=== PATIENT | male | born 1955 | race Two or more races ===

== ENCOUNTER 2016-08-17 13:27 | Emergency (ER) | payer OTHER ==
[~2016-08-17] VITALS: Ht 175.3 cm; Wt 145.1 kg
[~2016-08-17 13:27] MED LIST: CANA100T PO; DIGO0.25 PO; FURO-68 PO; GLIM4TAB2 PO; LIRA0.6P SQ; LISI-338 PO; METF10002 PO; PIOG15TA2 PO; PIOG30TA3 PO; POTA10TA12 PO; POTA20PA PO; RIVA20TA2 PO; TAMS0.4C2 PO; VERA120T5 PO; WARF5TAB7 PO
[2016-08-17 13:41] VITALS: BP 142/75
[2016-08-17] MEDS ORDERED: PROAIR HFA8.5 GM INH (14:18)
[2016-08-17] MEDS ORDERED: AZIT250T6 PO (14:18)
--- NOTE | 2016-08-17 14:18 | PHYS DOC ---
Past Medical History Past Medical History: A-Fib, CAD, CHF, Diabetes-Type II, Heart Disease, Hypertension Additional Past Medical Histor: CHF Past Surgical History: Other Additional Past Surgical Histo: BACK Alcohol Use: None Drug Use: None Adult General Chief Complaint Chief Complaint: COUGH HPI HPI Patient is a 61 year old male who presents with 3 weeks of productive cough with green sputum as well as dyspnea. His symptoms are worse at night. He also has nasal congestion and rhinorrhea. He denies chest pain, fever or chills, nausea or vomiting, abdominal pain, diarrhea, headache, sick contacts, hemoptysis, leg pain or swelling and orthopnea, palpitations, diaphoresis, exertional symptoms. Review of Systems Review of Systems Constitutional: Denies fever or chills [] Eyes: Denies change in visual acuity, redness, or eye pain [] HENT: Denies sore throat [] Respiratory: Has cough and shortness of breath [] Cardiovascular: No additional information not addressed in HPI [] GI: Denies abdominal pain, nausea, vomiting, bloody stools or diarrhea [] : Denies dysuria or hematuria [] Musculoskeletal: Denies back pain or joint pain [] Integument: Denies rash or skin lesions [] Neurologic: Denies headache, focal weakness or sensory changes [] Endocrine: Denies polyuria or polydipsia [] Allergies Allergies Allergies Coded Allergies Type Severity Reaction Last Updated Verified ciprofloxacin Allergy Intermediate 04/15/15 Yes Physical Exam Physical Exam Constitutional: Well developed, well nourished, no acute distress, non-toxic appearance. [] HENT: Normocephalic, atraumatic, bilateral TMs with clear effusion, oropharynx moist, no oral exudates, nose normal. [] Eyes: PERRLA, EOMI, conjunctiva normal, no discharge. [] Neck: Normal range of motion, supple, no stridor. [] Cardiovascular:Heart rate regular rhythm [] Lungs & Thorax: Bilateral breath sounds clear to auscultation, intermittent wet cough. Has cough with forced exhalation [] Abdomen: Bowel sounds normal, soft, no tenderness. [] Skin: Warm, dry, no erythema, no rash. [] Back: Normal range of motion. [] Extremities: No tenderness, ROM intact, no edema, no palpable cord. [] Neurologic: Alert and oriented X 3, normal motor function, normal sensory function, no focal deficits noted. [] Psychologic: Affect normal, judgement normal, mood normal. [] Current Patient Data Vital Signs Vital Signs Date Time Temp Pulse Resp B/P Pulse Ox O2 Delivery O2 Flow Rate FiO2 08/17/16 13:41 98.3 77 18 96 Room Air 98.3 Radiology/Procedures Radiology/Procedures Chest xray as interpreted by me with no acute cardiopulmonary disease process Course & Med Decision Making Course & Med Decision Making Pertinent Labs and Imaging studies reviewed. (See chart for details) With persistent symptoms, will treat with antibiotics. Albuterol inhaler provided for bronchospastic component of cough. Return precautions given. He and understand and agree with plan. Dragon Disclaimer Dragon Disclaimer This electronic medical record was generated, in whole or in part, using a voice recognition dictation system. Departure Departure Impression: Primary Impression: Cough Disposition: 01 HOME, SELF-CARE Condition: STABLE Referrals: ARIELLE GARDNER MD (PCP) Patient Instructions: Acute Bronchitis, [id number] Additional Instructions: Taking azithromycin as prescribed. Use inhaler as needed for cough or shortness of breath. Follow-up with your primary care doctor within one week. Return for any concerns. Scripts Azithromycin (Azithromycin Tablet)250 Mg Tablet1 Pkg PO UD #6 TAB Prov:Yuridia CLAUDIO MD 08/17/16 Albuterol Sulfate (Proair Hfa Inhaler)8.5 Gm Hfa.aer.ad2 Puff INH Q4HRS PRN SHORTNESS OF BREATH #1 INHALER Prov:Yuridia CLAUDIO MD 08/17/16 Yuridia CLAUDIO MD Aug 17, 2016 14:18
--- NOTE | 2016-08-17 14:21 | RAD ---
Indication: Productive cough and short of air for 3 weeks Technique: Two-view chest radiograph was obtained. No comparison is available. Findings: The lungs are clear. The cardiopulmonary silhouette is within normal limits. There is no pleural effusion. There are mild degenerative changes in the spine. Impression: No acute thoracic findings.
== END 2016-08-17 14:20 | disposition home or self-care (01) ==
LOC: ER 13:27
DX: R05 Cough (principal); I11.0 Hypertensive heart disease with heart failure; I50.9 Heart failure, unspecified; E11.9 Type 2 diabetes mellitus without complications; I25.10 Atherosclerotic heart disease of native coronary artery without angina pectoris; Z88.1 Allergy status to other antibiotic agents
CPT/HCPCS: 71020; 99284

== ENCOUNTER 2017-03-18 17:16 | Emergency (ER) | payer OTHER ==
[~2017-03-18] VITALS: Ht 175.3 cm; Wt 145.1 kg
[~2017-03-18 17:16] MED LIST changes: +AZIT250T6 PO; +METF-620 PO; -METF10002 PO; +PROAIR HFA8.5 GM INH
[2017-03-18 17:40] LABS: BILIRUBIN,URINE NEGATIVE (NEG); GLUCOSE,URINE >=1000 mg/dL (NEG); NITRITE,URINE NEGATIVE (NEG); PROTEIN,URINE NEGATIVE (NEG-TRACE)
[2017-03-18 18:09] VITALS: BP 115/69
[2017-03-18 18:36] LABS: BACTERIA,URINE MANY /HPF (0-FEW); RBC,URINE 0 /HPF (0-2); SQUAMOUS EPITHELIAL CELL,UR FEW /LPF; WBC,URINE TNTC /HPF (0-4)
[2017-03-18] MEDS ORDERED: CEPH-264 PO (18:40)
--- NOTE | 2017-03-18 18:43 | PHYS DOC ---
Past Medical History Past Medical History: A-Fib, CAD, CHF, Diabetes-Type II, Heart Disease, Hypertension Additional Past Medical Histor: CHF Past Surgical History: Other Additional Past Surgical Histo: BACK Alcohol Use: None Drug Use: None Adult General Chief Complaint Chief Complaint: PAIN ON URINATION HPI HPI Patient is a 62 year old male presenting to the emergency department for evaluation of painful urination going on for the past 2-3 days. Is that he now has fevers chills myalgias and arthralgias. Patient has not measured a temperature and there has been no nausea vomiting or diarrhea. Patient says that he is having no abdominal pain. He does have a history of atrial fibrillation and is on Coumadin. Review of Systems Review of Systems Constitutional:+ fever, chills [] Respiratory: Denies cough or shortness of breath [] Cardiovascular: No additional information not addressed in HPI [] GI: Denies abdominal pain, nausea, vomiting, bloody stools or diarrhea [] : + dysuria. No hematuria [] Musculoskeletal: Denies back pain or joint pain [] Neurologic: Denies headache, focal weakness or sensory changes [] Current Medications Current Medications Current Medications Medications (Trade) Dose Ordered Sig/Winifred Start Time Stop Time Status Last Admin Dose Admin Ceftriaxone Sodium (Rocephin Im) 1 gm 1X ONCE 03/18/17 18:45 03/18/17 18:46 DC 03/18/17 18:51 1 GM Allergies Allergies Allergies Coded Allergies Type Severity Reaction Last Updated Verified ciprofloxacin Allergy Intermediate 04/15/15 Yes Physical Exam Physical Exam Constitutional: Well developed, well nourished, no acute distress, non-toxic appearance. [] Cardiovascular:Heart rate irregular rhythm, tachycardic at 110 bpm, no murmur [] Lungs & Thorax: Bilateral breath sounds clear to auscultation [] Abdomen: Bowel sounds normal, soft, no tenderness, no masses, no pulsatile masses. [] Skin: Warm, dry, no erythema, no rash. [] Back: No tenderness, no CVA tenderness. [] Extremities: No tenderness, no cyanosis, no clubbing, ROM intact, no edema. [] Neurologic: Alert and oriented X 3, normal motor function, normal sensory function, no focal deficits noted. [] Psychologic: Affect normal, judgement normal, mood normal. [] Current Patient Data Vital Signs Vital Signs Date Time Temp Pulse Resp B/P (MAP) Pulse Ox O2 Delivery O2 Flow Rate FiO2 03/18/17 18:09 106 20 115/69 (84) 98 03/18/17 17:32 98.2 Room Air 98.2 Lab Values Laboratory Tests Test 03/18/17 17:25 Urine Collection Type Unknown Urine Color Yellow Urine Clarity Clear Urine pH 6.0 Urine Specific [place] 1.025 Urine Protein Negative mg/dL (NEG-TRACE) Urine Glucose (UA) >=1000 mg/dL (NEG) Urine Ketones (Stick) Negative mg/dL (NEG) Urine Blood Negative (NEG) Urine Nitrite Negative (NEG) Urine Bilirubin Negative (NEG) Urine Urobilinogen Dipstick 1.0 mg/dL (0.2 mg/dL) Urine Leukocyte Esterase Moderate (NEG) Urine RBC 0 /HPF (0-2) Urine WBC Tntc /HPF (0-4) Urine Squamous Epithelial Cells Few /LPF Urine Bacteria Many /HPF (0-FEW) Urine Hyaline Casts Moderate /HPF Urine Mucus Slight /LPF EKG EKG [] Radiology/Procedures Radiology/Procedures [] Course & Med Decision Making Course & Med Decision Making Patient with urinary tract infection and says that overall he feels well and nontoxic. Patient can safely be treated as an outpatient my opinion so I will give him a dose of IM Rocephin here and send him home on by mouth Keflex. Told to follow with his primary care provider to ensure improvement and come back to the ER sooner with any worsening pain fevers vomiting or other general concerns. Patient aware and agreeable with plan and verbalized understanding of the need for short-term follow-up in the strict ER return precautions discussed as above. Dragon Disclaimer Dragon Disclaimer This electronic medical record was generated, in whole or in part, using a voice recognition dictation system. Departure Departure Impression: Primary Impression: Urinary tract infection Disposition: HOME, SELF-CARE Condition: GOOD Referrals: ARIELLE GARDNER MD (PCP) Patient Instructions: Urinary Tract Infection Scripts Cephalexin (KEFLEX) 500 Mg Capsule 1 CAP PO TID, #21 CAP Prov: ENOCH RUIZ DO 03/18/17 Problem Qualifiers Primary Impression: Urinary tract infection Urinary tract infection type: acute cystitis Hematuria presence: without hematuria Qualified Codes: N30.00 - Acute cystitis without hematuria ENOCH RUIZ DO Mar 18, 2017 18:43
[2017-03-18] MEDS ORDERED: cefTRIAXone IM 1 GM VIAL IM ONE (18:45)
== END 2017-03-18 19:06 | disposition home or self-care (01) ==
LOC: ER 17:16
DX: N30.00 Acute cystitis without hematuria (principal); I48.91 Unspecified atrial fibrillation; I25.10 Atherosclerotic heart disease of native coronary artery without angina pectoris; I11.0 Hypertensive heart disease with heart failure; I50.9 Heart failure, unspecified; E11.9 Type 2 diabetes mellitus without complications; Z79.01 Long term (current) use of anticoagulants; Z88.1 Allergy status to other antibiotic agents
CPT/HCPCS: 81001; 87086; 96372; 99284; J0696

== ENCOUNTER 2017-05-18 16:37 | Emergency (ER) | payer OTHER ==
[~2017-05-18] VITALS: Ht 175.3 cm; Wt 145.1 kg
[~2017-05-18 16:37] MED LIST changes: +CEPH-264 PO
[2017-05-18 17:05] VITALS: BP 121/95
--- NOTE | 2017-05-18 17:15 | PHYS DOC ---
Past Medical History Past Medical History: A-Fib, CAD, CHF, Diabetes-Type II, Heart Disease, Hypertension Additional Past Medical Histor: CHF Past Surgical History: Other Additional Past Surgical Histo: BACK Alcohol Use: None Drug Use: None Adult General Chief Complaint Chief Complaint: PAIN ON URINATION [facility] HPI Patient is a 62 year old male presents to the emergency department stating that he is having frequent urination with occasional blood noted. He is also having some left flank pain when he urinates. Patient is Tongan-speaking only is at the bedside providing interpretation. She also states that he was seen here approximately one month ago for the same symptoms was provided with a shot and was discharged home. She denies any history of kidney stones denies any history of any abdominal pain or discomfort denies any nausea vomiting. No fever chills noted. Review of Systems Review of Systems Constitutional: Denies fever or chills [] Eyes: Denies change in visual acuity, redness, or eye pain [] HENT: Denies nasal congestion or sore throat [] Respiratory: Denies cough or shortness of breath [] Cardiovascular: No additional information not addressed in HPI [] GI: Denies abdominal pain, nausea, vomiting, bloody stools or diarrhea [] : dysuria denies hematuria [] Musculoskeletal: Denies back pain or joint pain [] Integument: Denies rash or skin lesions [] Neurologic: Denies headache, focal weakness or sensory changes [] Endocrine: Denies polyuria or polydipsia [] Allergies Allergies Allergies Coded Allergies Type Severity Reaction Last Updated Verified ciprofloxacin Allergy Intermediate 04/15/15 Yes Physical Exam Physical Exam Constitutional: Well developed, well nourished, no acute distress, non-toxic appearance. [] HENT: Normocephalic, atraumatic, bilateral external ears normal, oropharynx moist, no oral exudates, nose normal. [] Eyes: PERRLA, EOMI, conjunctiva normal, no discharge. [] Neck: Normal range of motion, no tenderness, supple, no stridor. [] Cardiovascular:Heart rate regular rhythm, no murmur [] Lungs & Thorax: Bilateral breath sounds clear to auscultation [] Skin: Warm, dry, no erythema, no rash. [] Back: No tenderness, no CVA tenderness. [] Extremities: No tenderness, no cyanosis, no clubbing, ROM intact, no edema. [] Neurologic: Alert and oriented X 3, normal motor function, normal sensory function, no focal deficits noted. [] Psychologic: Affect normal, judgement normal, mood normal. [] Current Patient Data Vital Signs Vital Signs Date Time Temp Pulse Resp B/P (MAP) Pulse Ox O2 Delivery O2 Flow Rate FiO2 05/18/17 17:05 97.7 84 20 121/95 (104) 97 Room Air 97.7 Lab Values Laboratory Tests Test 05/18/17 17:10 Urine Color Yellow Urine Clarity Clear Urine pH 6.5 Urine Specific [place] >=1.030 Urine Protein Negative mg/dL (NEG-TRACE) Urine Glucose (UA) >=1000 mg/dL (NEG) Urine Ketones (Stick) Negative mg/dL (NEG) Urine Blood Small (NEG) Urine Nitrite Negative (NEG) Urine Bilirubin Negative (NEG) Urine Urobilinogen Dipstick 1.0 mg/dL (0.2 mg/dL) Urine Leukocyte Esterase Small (NEG) Urine RBC Occ /HPF (0-2) Urine WBC 20-40 /HPF (0-4) Urine Squamous Epithelial Cells Occ /LPF Urine Bacteria 0 /HPF (0-FEW) EKG EKG [] Radiology/Procedures Radiology/Procedures [] Course & Med Decision Making Course & Med Decision Making Pertinent Labs and Imaging studies reviewed. (See chart for details) Radiology came over to pick patient up for his CAT scan of his abdomen and pelvis to rule out a kidney stone patient is refusing CAT scan at this time. He states all he wants is some medications for a urinary tract infection and he wants to be discharged. Urinalysis is still pending at this time. Patient was pre-sign a refusal for his CAT scan. Recommended following up with urologist within the next week. Signs and symptoms to return back to emergency department as been provided. All questions and concerns have been answered at the patient' s bedside. Patient's urine was positive for small amount of blood as well as small amount of leukocyte Estrace. Patient will be discharged home on Bactrim 1 tablet twice a day for the next 7 days. Recommended plenty of fluids such as water and cranberry juice. Avoid cranberry juice cocktail, carbonate beverages, citrus fruits, alcohol and caffeine as these are considered irritants to the bladder. Patient agrees with discharge instructions, treatment regimens and follow-up recommendations. [] Cam Disclaimer Dragon Disclaimer This electronic medical record was generated, in whole or in part, using a voice recognition dictation system. Departure Departure Impression: Primary Impression: Urinary tract infection with hematuria Disposition: 01 HOME, SELF-CARE Condition: STABLE Referrals: ARIELLE GARDNER MD (PCP) Patient Instructions: Hematuria, Adult, Urinary Tract Infection, [id number] Additional Instructions: Your urine was positive for small amount of blood as well as small amount of leukocyte Estrace. You have refused to have a CAT scan to rule out kidney stones. Medication as prescribed. Drink plenty of fluids such as water and cranberry juice. Avoid cranberry juice cocktail, carbonate beverages, citrus fruits, alcohol, caffeine and other irritants to the bladder. Follow-up with urology within the next week. He may obtain a urologist from [facility]. Return back to emergency prior signs symptoms of become worse. Scripts Nitrofurantoin Monohyd/M-Cryst (MACROBID 100 MG CAPSULE) 100 Mg Capsule 1 CAP PO BID, #14 CAP Prov: HAMIDA FRIEND APRN 05/18/17 Problem Qualifiers Primary Impression: Urinary tract infection with hematuria Urinary tract infection type: site unspecified Qualified Codes: N39.0 - Urinary tract infection, site not specified; R31.9 - Hematuria, unspecified HAMIDA FRIEND APRN May 18, 2017 17:15
[2017-05-18 17:34] LABS: BILIRUBIN,URINE NEGATIVE (NEG); GLUCOSE,URINE >=1000 mg/dL (NEG); NITRITE,URINE NEGATIVE (NEG); PH,URINE 6.5; PROTEIN,URINE NEGATIVE (NEG-TRACE)
[2017-05-18 17:41] LABS: BACTERIA,URINE 0 /HPF (0-FEW); RBC,URINE OCC /HPF (0-2); SQUAMOUS EPITHELIAL CELL,UR OCC /LPF; WBC,URINE 20-40 /HPF (0-4)
[2017-05-18] MEDS ORDERED: NITR100C62 PO (17:49)
--- NOTE | 2017-05-21 11:48 | VNOTE ---
CALL BACK NOTE CALL BACK Microbiology 05/18/17 Urine Culture - Final, Complete 05/18/17 Urine Culture Result 1 (VENU) - Final, Complete 05/18/17 Antimicrobic Susceptibility - Final, Complete Call to speak with patient he does not speak [place]. He provided the phone to normal who is his to translate for him. Patient's urine was positive for Klebsiella pneumoniae. Patient has been placed on Macrobid which is intermediate response to these antibiotic. Patient's antibiotic had been changed by Dr. Hubbard in which the patient had followed up with. continues to state that she believes that he was put on Keflex. No further treatment needed. HAMIDA FRIEND APRN May 21, 2017 11:48
== END 2017-05-18 18:10 | disposition home or self-care (01) ==
LOC: ER 16:37
DX: N39.0 Urinary tract infection, site not specified (principal); R31.9 Hematuria, unspecified; I11.0 Hypertensive heart disease with heart failure; I50.9 Heart failure, unspecified; E11.9 Type 2 diabetes mellitus without complications; I25.10 Atherosclerotic heart disease of native coronary artery without angina pectoris; I48.91 Unspecified atrial fibrillation; Z88.1 Allergy status to other antibiotic agents
CPT/HCPCS: 81001; 87086; 87186; 87491; 87591; 99284

== ENCOUNTER 2018-03-17 11:07 | Emergency (ER) | payer OTHER ==
[2018-03-17 12:11] LABS: BILIRUBIN,URINE NEGATIVE (NEG); CLARITY,URINE CLEAR; COLOR,URINE YELLOW; GLUCOSE,URINE >=1000 mg/dL (NEG); NITRITE,URINE POSITIVE (NEG); PH,URINE 5.5; PROTEIN,URINE NEGATIVE (NEG-TRACE)
[2018-03-17 12:20] LABS: ADD MAN DIFF? NO
[2018-03-17 12:27] LABS: BASO # 0.1 x10^3/uL (0.0-0.2); BASO % 1 % (0-3); EOS # 0.2 x10^3/uL (0.0-0.7); EOS % 2 % (0-3); HEMATOCRIT 43.1 % (39.0-53.0); HEMOGLOBIN 14.8 g/dL (13.0-17.5); LYMPH # 1.7 x10^3/uL (1.0-4.8); LYMPH % 21 % (24-48); MEAN CORPUSCULAR HEMOGLOBIN 36 pg (25-35); MEAN CORPUSCULAR HGB CONC 34 g/dL (31-37); MEAN CORPUSCULAR VOLUME 104 fL (79-100); MONO # 0.7 x10^3/uL (0.0-1.1); MONO % 9 % (0-9); NEUT # 5.5 x10^3uL (1.8-7.7); NEUT % 68 % (31-73); PLATELET COUNT 230 x10^3/uL (140-400); RED BLOOD COUNT 4.15 x10^6/uL (4.30-5.70); RED CELL DISTRIBUTION WIDTH 14.9 % (11.5-14.5); WHITE BLOOD COUNT 8.1 x10^3/uL (4.0-11.0)
[2018-03-17 12:28] LABS: BACTERIA,URINE MANY /HPF (0-FEW); RBC,URINE 0 /HPF (0-2); SQUAMOUS EPITHELIAL CELL,UR MOD /LPF; WBC,URINE 20-40 /HPF (0-4)
[2018-03-17 12:33] LABS: ANION GAP 4 (6-14); BLOOD UREA NITROGEN 13 mg/dL (8-26); BUN/CREATININE RATIO 14 (6-20); CALCIUM 8.8 mg/dL (8.5-10.1); CARBON DIOXIDE 30 mmol/L (21-32); CHLORIDE 100 mmol/L (98-107); CREATININE 0.9 mg/dL (0.7-1.3); GFR 85.2; GLUCOSE 263 mg/dL (70-99); POTASSIUM 4.2 mmol/L (3.5-5.1); SODIUM 134 mmol/L (136-145)
[2018-03-17] MEDS: FAMOTIDINE 20 MG/2 ML VIAL IVP (12:35)
[2018-03-17] MEDS: fentaNYL PF VIAL 100 MCG/2 ML VIAL IV (12:35)
[2018-03-17 12:38] LABS: INR 1.6 (0.8-1.1); PARTIAL THROMBOPLASTIN TIME 35 SEC (24-38); PROTHROMBIN TIME PATIENT 18.1 SEC (11.7-14.0)
[2018-03-17 12:40] LABS: ALBUMIN 3.3 g/dL (3.4-5.0); ALBUMIN/GLOBULIN RATIO 0.8 (1.0-1.7); ALK PHOS 81 U/L (46-116); ALT (SGPT) 39 U/L (16-63); AST (SGOT) 30 U/L (15-37); CREATINE KINASE 53 U/L (39-308); TOTAL BILIRUBIN 0.4 mg/dL (0.2-1.0); TOTAL PROTEIN 7.4 g/dL (6.4-8.2)
[2018-03-17 12:44] LABS: TROPONINI < 0.017 ng/mL (0.000-0.055)
[2018-03-17] MEDS: HYDROcodone/APAP 5/325MG 1 TAB TABLET PO (14:24)
== END 2018-03-17 14:27 | disposition home or self-care (01) ==
LOC: ER 11:07
DX: N39.0 Urinary tract infection, site not specified (principal); I11.0 Hypertensive heart disease with heart failure; I50.9 Heart failure, unspecified; E11.9 Type 2 diabetes mellitus without complications; I25.10 Atherosclerotic heart disease of native coronary artery without angina pectoris; Z88.1 Allergy status to other antibiotic agents
CPT/HCPCS: 36415; 74176; 80053; 81001; 82550; 84484; 85025; 85610; 85730; 87086; 96365; 96375; 99285-25; J0690; J3010; S0028